=== PATIENT | female | born 1960 | race Hispanic/Latino ===

== ENCOUNTER 2017-10-15 09:22 | Outpatient (CLI) | payer OTHER | END 2017-10-15 09:23 | disposition home or self-care (01) | LOC: BICMRI 09:22 | PROVIDERS: ATTEND Family Medicine | DX: M54.40 Lumbago with sciatica, unspecified side (principal) | CPT/HCPCS: 72148 ==

== ENCOUNTER 2017-11-10 13:30 | Inpatient (IN) | payer OTHER ==
[2017-11-17] MEDS ORDERED: CEFAZOLIN/Water 2 GM/20 ML SYRINGE ONE (05:53)
[2017-11-17] MEDS ORDERED: Ketorolac Tromethamine 30 MG/ML VIAL ONE ×2 (05:53→09:54)
[2017-11-17] MEDS ORDERED: Vancomycin HCl 1.5 GM in Sodium Chloride 0.9% 250 ML 300 ML IVPB SCH ×2 (06:00→18:45)
[2017-11-17] MEDS ORDERED: Fentanyl 100 MCG/2 ML VIAL ONE (06:35)
[2017-11-17] MEDS ORDERED: Midazolam HCl 2 mg/2 ml Vial ONE (06:35)
[2017-11-17] MEDS ORDERED: Ketorolac Tromethamine 30 MG/ML VIAL IVP PRN (07:15)
[2017-11-17] MEDS ORDERED: fentaNYL Citrate/PF 1,250 MCG, Bupivacaine 25 ML in Sodium Chloride 0.9% 250 ML 200 ML EPIDURAL SCH (07:15)
[2017-11-17] MEDS ORDERED: diphenhydrAMINE 25 MG CAP PO PRN ×2 (07:15→10:15)
[2017-11-17] MEDS ORDERED: Promethazine HCl 25 MG/ML VIAL IM PRN ×3 (07:15→10:15)
[2017-11-17] MEDS ORDERED: diphenhydrAMINE 50 MG/ML VIAL IM PRN (07:15)
[2017-11-17] MEDS ORDERED: traMADol HCl 50 MG TAB PO PRN ×3 (07:15→10:15)
[2017-11-17] MEDS ORDERED: Ondansetron HCl/PF 4 MG/2 ML Vial IVP PRN ×3 (07:15→10:15)
[2017-11-17] MEDS ORDERED: Bupivacaine 0.25% 10 ML VIAL EPIDURAL PRN (07:15)
[2017-11-17] MEDS ORDERED: HYDROcodone/Acetaminophen 5/325 mg Tablet PO PRN ×2 (07:15)
[2017-11-17] MEDS ORDERED: Promethazine HCl 25 MG SUPP PR PRN (07:15)
[2017-11-17] MEDS ORDERED: Zolpidem Tartrate 5 MG TAB PO PRN ×2 (07:15→10:15)
[2017-11-17] MEDS ORDERED: Naloxone HCl 0.4 mg/ml Vial IV PRN (07:15)
[2017-11-17] MEDS ORDERED: Naloxone HCl 0.4 mg/ml Vial IVP PRN (07:15)
[2017-11-17] MEDS ORDERED: Hydrocerin (Eucerin) Cream 120 gm Jar TOP PRN (07:15)
[2017-11-17] MEDS ORDERED: diphenhydrAMINE 50 MG/ML VIAL IVP PRN (07:15)
[2017-11-17] MEDS ORDERED: Bupivacaine HCl 0.5%/Epinephrine 1:200,000/PF 30 ml Vial ONE (07:17)
[2017-11-17] MEDS ORDERED: Bupivacaine/Epinephrine 0.25% 30 ML VIAL ONE (07:17)
[2017-11-17] MEDS ORDERED: Promethazine HCl 25 MG/ML VIAL SLOW IVP PRN (08:31)
[2017-11-17] MEDS ORDERED: Tranexamic Acid 1,000 MG in Sodium Chloride 0.9% 250 ML 250 ML IVPB SCH (09:45)
[2017-11-17] MEDS ORDERED: Senokot S 8.6-50 MG TAB PO SCH ×2 (10:15→11:30)
[2017-11-17] MEDS ORDERED: Ferrous Gluconate 324 MG TAB PO SCH ×2 (10:15→11:30)
[2017-11-17] MEDS ORDERED: Aspirin 325 MG TAB PO SCH ×2 (10:15→21:00)
[2017-11-17] MEDS ORDERED: HYDROcodone/Acetaminophen 10/325 mg Tablet PO PRN ×2 (10:15)
[2017-11-17] MEDS ORDERED: Multivitamin W/ Minerals 1 TAB PO SCH ×2 (10:15→11:30)
[2017-11-17] MEDS ORDERED: Fentanyl 100 MCG/2 ML VIAL SLOW IVP PRN ×2 (10:15)
[2017-11-17] MEDS ORDERED: Loperamide HCl 2 MG CAP PO PRN (11:03)
[2017-11-17] MEDS ORDERED: Labetalol HCl 100 MG/20 ML VIAL SLOW IVP PRN (11:03)
[2017-11-17] MEDS ORDERED: Senokot 8.6 MG TAB PO PRN (11:03)
[2017-11-17] MEDS ORDERED: hydrALAZINE 20 MG/ML VIAL SLOW IVP PRN (11:03)
[2017-11-17] MEDS ORDERED: Milk Of Magnesia 30 ML UDCUP PO PRN (11:03)
[2017-11-17] MEDS ORDERED: Mag-Al 1200 mg/1200 mg/30 ML UDCUP PO PRN (11:03)
[2017-11-17] MEDS ORDERED: Eucerin (Mineral Oil/Petrolatum,White) 30 gm Jar TOP PRN (11:03)
[2017-11-17] MEDS ORDERED: Chloraseptic Spray 180 ml Bottle PO PRN (11:03)
[2017-11-17] MEDS ORDERED: Diabetic Tussin 200 MG/10 ML UDCUP PO PRN (11:03)
[2017-11-17] MEDS ORDERED: Artificial Tears 18 DROP/0.9 ML EA EYE PRN (11:03)
--- NOTE | 2017-11-17 11:07 | RAD ---
AP VIEW PELVIS TWO VIEWS RIGHT HIP: DATE: 11/17/17. HISTORY: Post right total hip arthroplasty. FINDINGS: There are postsurgical changes related to placement of right total hip prosthesis. No hardware compl ication is seen. No fracture or dislocation is identified. No other osseous abnormality. Phlebolit hs overlie the pelvis. Subcutaneous emphysema is seen at the right lateral hip related to recent pos tsurgical change. IMPRESSION: Right total hip prosthesis. No other acute osseous abnormality is seen. POS: BONIFACIO
--- NOTE | 2017-11-17 11:39 | CON ---
DATE OF CONSULTATION: 11/17/2017 PRIMARY CARE PHYSICIAN: Dr. Wagner. PRIMARY ATTENDING: Dr. Jean Marie Flynn. REASON FOR ADMISSION: Elective admission for right hip replacement. HISTORY OF PRESENT ILLNESS: A 57-year-old female who has underlying history of hypertension as well as osteoarthritis. She is having right hip pain for about a year. Her pain is getting worse with physical activity. Her pain gets better with rest. She tried all NSAIDs and different type of pain medication as well as exercise without any significant improvement. Her right hip was more worse and that was affecting her quality of life and that is why finally patient agreed to go for right hip replacement. Dr. Aj admitted her for right hip replacement. She does not have any chest pain, palpitation, shortness of breath. She denies any constipation or diarrhea. She denies any UTI symptoms. She denies any nausea, vomiting, diarrhea. Patient is Cymro speaking only, so history obtained with help of her daughter who is present at bedside. PAST MEDICAL HISTORY: Hypertension. PAST SURGICAL HISTORY: Cholecystectomy and status post right hip replacement. PAST PSYCHIATRIC HISTORY: Reviewed and negative. ALLERGIES: No known drug allergy. FAMILY HISTORY: No strong family history of premature coronary artery disease, stroke or cancer. CURRENT HOME MEDICATIONS: Celecoxib 200 mg p.o. daily, Toradol with tramadol 10 /25 one tablet q.6 hourly p.r.n., losartan 50 mg p.o. daily, Lyrica 75 mg p.o. at bedtime, vitamin B complex 1 tablet p.o. daily. REVIEW OF SYSTEMS: The following complete review of systems was negative, unless otherwise mentioned in the HPI or below: Constitutional: Weight loss or gain, ability to conduct usual activities. Skin: Rash, itching. Eyes: Double vision, pain. ENT/Mouth: Nose bleeding, neck stiffness, pain, tenderness. Cardiovascular: Palpitations, dyspnea on exertion, orthopnea. Respiratory: Shortness of breath, wheezing, cough, hemoptysis, fever or night sweats. Gastrointestinal: Poor appetite, abdominal pain, heartburn, nausea, vomiting, constipation, or diarrhea. Genitourinary: Urgency, frequency, dysuria, nocturia. Musculoskeletal: Pain, swelling. Neurologic/Psychiatric: Anxiety, depression. Allergy/Immunologic: Skin rash, bleeding tendency. Please see my HPI for pertinent positive and negative. All other review of systems reviewed and negative except as mentioned in the HPI. SOCIAL HISTORY: Patient is and lives at home with family. No history of tobacco, alcohol or illicit drug abuse. HOSPITAL COURSE: Reviewed. PHYSICAL EXAMINATION: VITAL SIGNS: Currently, blood pressure 120/70, pulse 72, respiratory rate 18, weight 210 pounds, saturation 99% on room air. GENERAL: The patient is currently alert, awake, in no obvious acute distress. HEAD: Normocephalic, atraumatic. EYES: Pupils round, reactive to light. Extraocular muscle intact. ENT: Oropharynx within normal limits. Moist mucous membranes. No oral lesion , no pharyngeal erythema, no exudate. NECK: Supple, no JVD, no thyromegaly, no carotid bruit, no jugular venous distention. LUNGS: Clear to auscultation without any rhonchi or rales. CARDIAC: S1 and S2 regular. No murmur, no gallop, no rub. ABDOMEN: Soft, bowel sounds present, nontender, nondistended. No organomegaly , no mass. Obesity present. No suprapubic tenderness. BACK: Examination unremarkable. EXTREMITIES: Upper extremity passive movement of all joints are normal. Lower extremity, right hip site surgical dressing noted. Epidural in place. SCD in place. No edema. Good peripheral pulsation, no calf tenderness. Good distal pulsation. SKIN: No skin rash. HEMATOLOGICAL SYSTEM: No lymphadenopathy. NEUROLOGIC: Nonfocal examination. Patient is moving all 4 limbs. Sensation intact. Reflexes symmetrical. Plantar bilateral flexor. PSYCHIATRIC: Normal affect. SIGNIFICANT LABORATORY DATA AND IMAGING DATA: CBC: WBC 7.4, hemoglobin 12.3, platelet 207. INR 1.0. BMP: Sodium 142, potassium 3.9, chloride 107, carbon dioxide 26, anion gap 13, BUN 13, creatinine 0.65, glucose 136. Hemoglobin A1c 6.2, calcium 9.5. LFT: AST 15, ALT 17, alkaline phosphatase 61, albumin 4.0, LDL 155. Urinalysis; leukocyte esterase trace. Hip x-ray noted. ASSESSMENT AND PLAN: 1. Status post right hip replacement. The patient has advanced osteoarthritis and failed conservative therapy required right hip replacement. Currently, patient had surgery done without any complications. She has epidural in placed and pain is controlled. The patient will get aspirin 81 mg p.o. b.i.d. for deep venous thrombosis prophylaxis. As per protocol postoperatively, we will continue ferrous gluconate 324 mg p.o. b.i.d. The patient will be given stool softener to prevent constipation. The patient will be given pain medication as needed basis for pain control. She will have physical therapy and occupational therapy as per [facility] protocol treatment. 2. Hypertension. We will continue losartan 50 mg p.o. daily. If blood pressure is less than 100, then will hold on antihypertensive medication. 3. History of dyslipidemia. Based on lipid profile in 2015, patient has elevated LDL. The patient is instructed to follow up with primary care physician and repeat outpatient fasting lipid profile and considering statin therapy will be required based on lipid profile testing. We will defer testing to be done after discharge. 4. Prediabetes, based on 2015, patient has hemoglobin A1c of 6.2. The patient will need another testing after discharge. Necessary patient education given about diet and exercise. 5. Obesity with body mass index of 37. Weight loss education given. Healthy lifestyle measures discussed with the patient. 6. Deep venous thrombosis prophylaxis. Patient is already on aspirin therapy for deep venous thrombosis prophylaxis as per protocol. 7. Gastrointestinal prophylaxis, Pepcid 20 mg p.o. b.i.d. 8. Code status: The patient is FULL CODE. Patient's is surrogate decision maker. Disposition plan based on clinical course. Patient will stay in hospital more than 2 midnights. Thank you for the consult. We will follow up with you while in hospital. Plan of care discussed with the patient's family member at bedside. VIKI
--- NOTE | 2017-11-17 12:44 | OP ---
DATE OF PROCEDURE: 11/17/2017 PREOPERATIVE DIAGNOSIS: Right hip osteoarthritis. POSTOPERATIVE DIAGNOSIS: Right hip osteoarthritis. PROCEDURE PERFORMED: Right total hip arthroplasty. STAFF: Gee Aj M.D. CHEMICAL PLANT OPERATOR SUPERVISOR: Wilfrid Espinoza PA-C ANESTHESIA: Tomasa. The patient received a general intubation with an epidural. ESTIMATED BLOOD LOSS: 150 mL. TOURNIQUET TIME: None. IMPLANTS: A Trident 15 mm cluster shell Trident 10 degree poly insert, 36 mm Accolade 130 degree size 2 neck stem, 36 Biolox Delta minus 2-1/2 femoral head ceramic femoral head. ANTIBIOTICS: Given with Ancef 2 grams, vancomycin 1.5 grams. COMPLICATIONS: None. HISTORY OF PRESENT ILLNESS: Real Carias is a 57-year-old female who presented to me with right hip pain as well as some radiating pain. Pain is increased with ROM leading to groin and deeper hip pain. She has pain when she rides very long in seated position, 8 out of 10. Denies numbness or tingling. The patient does have radiating pain at posterior calf. Exam of the right hip showed groin pain with internal rotation of her hip as well as neurovascularly intact. She was straight leg raise equivocal. MRI of her hip show degenerative changes as well as x-rays showed osteophyte formation, migration of the head and joint space loss without acute fracture. MRI of lumbar spine also showed degenerative changes at L3-L4 as well as L4-L5. I discussed with the patient that a portion of his pain was coming from a right hip arthritis and a portion was coming from her back. I discussed the risks and benefits of surgery to include pain, scar, bleeding, infection, damage to vital structures, decreased range of motion or strength, failure of procedure, continued pain despite surgical intervention, loss of life or limb. The patient understands the risks and benefits and elected to proceed. PROCEDURE IN DETAIL: Time out was performed designating the patient's right lower extremity as the operative site based on sight, consents and markings. After timeout, the patient's right lower extremity was prepped and draped in sterile fashion. The patient was placed in lateral decubitus position with all bony prominences well padded, hip position, lateral incision down through skin, down the large amount of subcutaneous fat to the IT band. IT band was split. Gluteus medius and minimus were taken off. The capsule was evaluated, excised down to the acetabulum. We dislocated the hip, cut the femoral neck, removed the head was about 46 mm diameter. We then excised all the labrum. We then placed our acetabular retractors in place. We reamed sequentially up from 44 up to 50. We placed a final 50 mm cup into position. We had good firm fixation , 5 to 6 mm uncovered superior as well as posterior. I liked position of the cup. We then washed, placed our 10 degree poly insert in position, held in place, had firm stable fixation with our cup. We then moved back to the patient 's femoral neck. We broached. We used a viavoo cutter opening canal reamer. We then placed a broach and broached to a size 2. We reduced it to size 2 standard, felt the patient might be a little long, put a final trial and therefore elected for a size 2 with -2.5 ceramic head. We reduced and had good stability. Lengths seemed equal on the table. We reduced into place, washed, and closed the gluteus minimus, gluteus medius with #2 Vicryl, #2 Quill, 0 Quill , 2-0 Quill, and glue. The patient will be admitted back to [facility]. We will follow in house. VIKI
[2017-11-17] MEDS: Dextrose 5 %-0.45 % NaCl 1,000 ML IV SCH ×2 (13:13→13:57)
[2017-11-17] MEDS ORDERED: Glycopyrrolate 0.2 MG/ML 5 ML SYRINGE ONE (13:47)
[2017-11-17] MEDS ORDERED: PROPOFOL 200 MG/20 ML VIAL ONE (13:47)
[2017-11-17] MEDS ORDERED: PHENYLEPHRINE-NS 100 MCG/ML 10 ML SYRINGE ONE (13:47)
[2017-11-17] MEDS ORDERED: Lidocaine 1% PF 5 ML VIAL ONE (13:47)
[2017-11-17] MEDS ORDERED: ePHEDrine/0.9% NaCl/PF SYRINGE 50 mg/10 ml ONE (13:47)
[2017-11-17] MEDS: CEFAZOLIN/Water 2 GM/20 ML SYRINGE SLOW IVP SCH ×2 (15:41→23:04)
[2017-11-17] MEDS: Ferrous Gluconate 324 MG TAB PO SCH (20:51)
[2017-11-17] MEDS: Famotidine 20 MG TAB PO SCH (20:51)
[2017-11-17] MEDS: Pregabalin 75 MG CAP PO SCH (20:52)
[2017-11-17] MEDS: Senokot S 8.6-50 MG TAB PO SCH (20:52)
[2017-11-18] MEDS: Acetaminophen 325 MG TAB PO PRN ×2 (03:14→20:08)
[2017-11-18 05:53] LABS: Hemoglobin 10.1 g/dL (12.0-16.0); Mean Corpuscular HGB CONC 33.8 g/dL (32.0-36.0); Mean Corpuscular Hemoglobin 28.9 pg (27.0-31.0); Mean Corpuscular Volume 85.5 fl (81.0-99.0); Mean Platelet Volume 8.7 fL (7.4-10.4); Platelet Count 152 thou/uL (130-400); RBC Distribution Width 12.1 % (11.5-14.5); Red Blood Cell (RBC) Count 3.48 mill/uL (4.20-5.40); White Blood Cell (WBC) Count 7.7 thou/uL (4.8-10.8)
[2017-11-18] MEDS: Dextrose 5 %-0.45 % NaCl 1,000 ML IV SCH ×3 (06:52→23:26)
[2017-11-18] MEDS: Senokot S 8.6-50 MG TAB PO SCH ×2 (08:07→20:09)
[2017-11-18] MEDS: Ferrous Gluconate 324 MG TAB PO SCH ×2 (08:09→20:10)
[2017-11-18] MEDS: Famotidine 20 MG TAB PO SCH ×2 (08:10→20:08)
[2017-11-18] MEDS: CeleCOXIB 100 MG CAP PO SCH (08:10)
[2017-11-18] MEDS: Multivitamin W/ Minerals 1 TAB PO SCH (08:10)
[2017-11-18] MEDS: Stress 600 With Zinc 1 TAB PO SCH (08:11)
[2017-11-18] MEDS ORDERED: Non-Formulary Item 1 EACH (Celecoxib [Celecoxib] 200 MG) PO SCH (09:00)
[2017-11-18] MEDS ORDERED: Non-Formulary Item 1 EACH (Losartan Potassium [Losartan Potassium] 50 MG) PO SCH (09:00)
[2017-11-18] MEDS ORDERED: VITAMIN B COMPLEX PO SCH (09:00)
--- NOTE | 2017-11-18 10:17 | PDOC.PN ---
- Subjective Encounter Start Date: 11/18/17 Encounter Start Time: 08:30 Patient seen and examined for medical management. No new complaints. No overnight events overall doing well, her pain is controlled - Objective Resuscitation Status: Resuscitation Status FULL:Full Resuscitation MAR Reviewed: Yes Vital Signs & Weight: Vital Signs (12 hours) Temp Pulse Resp BP BP Pulse Ox 11/18/17 08:26 99.1 F 93 16 118/68 95 11/18/17 04:38 100.1 F H 95 17 110/66 98 11/17/17 23:04 99.5 F 87 16 113/68 99 Weight Weight 210 lb I&O: 11/17/17 11/18/17 11/19/17 06:59 06:59 06:59 Intake Total 3625 Output Total 2100 Balance 1525 Result Diagrams: 11/18/17 05:33 Phys Exam - Physical Examination Constitutional: NAD HEENT: PERRLA, moist MMs, sclera anicteric Neck: no nodes, no JVD, supple, full ROM Respiratory: no wheezing, no rales, no rhonchi, clear to auscultation bilateral Cardiovascular: RRR, no significant murmur, no rub Gastrointestinal: soft, non-tender, no distention, positive bowel sounds obesity+ Musculoskeletal: no edema, pulses present epidrual in place, surgical site with dressing Neurological: non-focal, normal sensation, moves all 4 limbs Lymphatic: no nodes Psychiatric: normal affect, A&O x 3 Skin: no rash, normal turgor Dx/Plan (1) Status post total hip replacement, right Code(s): Z96.641 - PRESENCE OF RIGHT ARTIFICIAL HIP JOINT Status: Acute (2) Anemia, normocytic normochromic Code(s): D64.9 - ANEMIA, UNSPECIFIED Status: Chronic (3) Dyslipidemia Code(s): E78.5 - HYPERLIPIDEMIA, UNSPECIFIED Status: Chronic (4) Hypertension Code(s): I10 - ESSENTIAL (PRIMARY) HYPERTENSION Status: Chronic (5) Obesity (BMI 30-39.9) Code(s): E66.9 - OBESITY, UNSPECIFIED Status: Chronic (6) Osteoarthritis Code(s): M19.90 - UNSPECIFIED OSTEOARTHRITIS, UNSPECIFIED SITE Status: Chronic - Plan cont current plan of care, plan discussed w/ family, PT/OT, DVT proph w/SCDs * pt is on aspirin for DVT prophylaxis as per [facility] protocol * continue PT/OT as per [facility] protocol * pain control with pain meds as below * epidural as per anesthesia * medication reviewed as below * symptomatic treatment * continue pepcid for GI prophylaxis. * hold blood pressure meds for SBP <120 today * will monitor for fever today, likely reactive fever after surgery Review of Systems - Review of Systems Constitutional: fever. negative: chills, sweats, weakness, malaise, other Eyes: negative: Pain, Vision Change, Conjunctivae Inflammation, Eyelid Inflammation, Redness, Other ENT: negative: Ear Pain, Ear Discharge, Nose Pain, Nose Discharge, Nose Congestion, Mouth Pain, Mouth Swelling, Throat Pain, Throat Swelling, Other Respiratory: negative: Cough, Dry, Shortness of Breath, Hemoptysis, SOB with Excertion, Pleuritic Pain, Sputum, Wheezing Cardiovascular: negative: chest pain, palpitations, orthopnea, paroxysmal nocturnal dyspnea, edema, light headedness, other Gastrointestinal: negative: Nausea, Vomiting, Abdominal Pain, Diarrhea, Constipation, Melena, Hematochezia, Other Genitourinary: negative: Dysuria, Frequency, Incontinence, Hematuria, Retention , Other Musculoskeletal: negative: Neck Pain, Shoulder Pain, Arm Pain, Back Pain, Hand Pain, Leg Pain, Foot Pain, Other Skin: negative: Rash, Lesions, Alec, Bruising, Other Neurological: negative: Weakness, Numbness, Incoordination, Change in Speech, Confusion, Seizures, Other - Medications/Allergies Allergies/Adverse Reactions: Allergies Allergy/AdvReac Type Severity Reaction Status Date / Time No Known Allergies Allergy Unverified 11/10/17 14:27 Medications: Current Medications Acetaminophen (Tylenol) 650 mg PO Q4H PRN PRN Reason: CALLEJAS/ T > 101F; Mild Pain (1-3) Last Admin: 11/18/17 03:14 Dose: 650 mg Hydrocodone Bitart/Acetaminophen (Garvin 5/325) 1 tab PO Q4H PRN PRN Reason: Mild Pain 0-3 Hydrocodone Bitart/Acetaminophen (Garvin 5/325) 2 tab PO Q4H PRN PRN Reason: For Moderate Pain 4-6 Hydrocodone Bitart/Acetaminophen (Garvin 10/325) 1 tab PO Q4H PRN PRN Reason: Moderate Pain (4-6) Hydrocodone Bitart/Acetaminophen (Garvin 10/325) 2 tab PO Q4H PRN PRN Reason: Severe Pain (7-10) Al Hydroxide/Mg Hydroxide (Maalox) 15 ml PO Q4H PRN PRN Reason: Heartburn or Indigestion Artificial Tears (Tears Naturale) 0 drop EA EYE PRN PRN PRN Reason: Dry Eyes Aspirin (Aspirin Chewable) 81 mg PO BID [facility] Last Admin: 11/18/17 08:10 Dose: 81 mg Celecoxib (Celebrex) 200 mg PO DAILY [facility] Last Admin: 11/18/17 08:10 Dose: 200 mg Diphenhydramine HCl (Benadryl) 25 mg IM Q3H PRN PRN Reason: Itching Diphenhydramine HCl (Benadryl) 25 mg IVP Q3H PRN PRN Reason: Itching Diphenhydramine HCl (Benadryl) 25 mg PO Q6H PRN PRN Reason: Itching Emollient Cream (Hydrocerin Cream) 0 gm TOP PRN PRN PRN Reason: Itching Famotidine (Pepcid) 20 mg PO BID [facility] Last Admin: 11/18/17 08:10 Dose: 20 mg Fentanyl (Sublimaze) 50 mcg SLOW IVP Q30MIN PRN PRN Reason: Moderate Pain (4-6) Fentanyl (Sublimaze) 100 mcg SLOW IVP Q1H PRN PRN Reason: Severe Pain (7-10) Ferrous Gluconate (Fergon) 324 mg PO BID [facility] Last Admin: 11/18/17 08:09 Dose: 324 mg Guaifenesin (Robitussin Sf) 200 mg PO Q4H PRN PRN Reason: Cough Hydralazine HCl (Apresoline) 10 mg SLOW IVP Q4H PRN PRN Reason: Systolic BP > 180 Fentanyl Citrate 1,250 mcg/Bupivacaine HCl 25 ml/ Sodium Chloride 250 mls @ 0 mls/hr EPIDURAL INF [facility] PRN Reason: As Directed Dextrose/Sodium Chloride (D5 1/2 Ns) 1,000 mls @ 100 mls/hr IV .Q10H [facility] Last Admin: 11/18/17 06:52 Dose: Not Given Iron/Minerals/Multivitamins (Theragran M) 1 tab PO DAILY [facility] Last Admin: 11/18/17 08:10 Dose: 1 tab Ketorolac Tromethamine (Toradol) 30 mg IVP Q6H PRN PRN Reason: Moderate Pain (4-6) Stop: 11/20/17 07:16 Labetalol HCl (Normodyne) 20 mg SLOW IVP Q4H PRN PRN Reason: Systolic BP > 180 Loperamide HCl (Imodium) 2 mg PO PRN PRN PRN Reason: Diarrhea/Loose Stools Losartan Potassium (Cozaar) 50 mg PO DAILY [facility] Magnesium Hydroxide (Milk Of Magnesium) 30 ml PO DAILYPRN PRN PRN Reason: Constipation Mineral Oil/White Petrolatum (Eucerin Cream) 0 gm TOP BIDPRN PRN PRN Reason: Dry Skin Miscellaneous Information (Communication Order-Pharmacy) 1 each FS ASDIR [facility] Multivitamins/Zinc (Stress 600 With Zinc) 1 tab PO DAILY [facility] Last Admin: 11/18/17 08:11 Dose: 1 tab Naloxone HCl (Narcan) 0.2 mg IV Q5MIN PRN PRN Reason: RR <=8 OR OBTUNDED/UNAROUSABLE Naloxone HCl (Narcan) 0.1 mg IVP Q15MIN PRN PRN Reason: URINARY RETENTION Ondansetron HCl (Zofran) 4 mg IVP Q6H PRN PRN Reason: Nausea/Vomiting Phenol (Chloraseptic [place] 180 Ml Bot) 0 ml PO PRN PRN PRN Reason: Sore Throat Pregabalin (Lyrica) 75 mg PO HS [facility] Last Admin: 11/17/17 20:52 Dose: Not Given Promethazine HCl (Phenergan Suppository) 25 mg UT Q4H PRN PRN Reason: Nausea/Vomiting Promethazine HCl (Phenergan) 12.5 mg IM Q4H PRN PRN Reason: Nausea/Vomiting Last Admin: 11/17/17 21:02 Dose: 12.5 mg Senna (Senokot) 2 tab PO HSPRN PRN PRN Reason: Constipation Senna/Docusate Sodium (Senokot S) 2 tab PO BID [facility] Last Admin: 11/18/17 08:07 Dose: 2 tab Sodium Chloride (Flush - Normal Saline) 10 ml IVF PRN PRN PRN Reason: Saline Flush Tramadol HCl (Ultram) 50 mg PO Q6H PRN PRN Reason: Mild Pain 1-3 Tramadol HCl (Ultram) 100 mg PO Q6H PRN PRN Reason: Mild Pain (1-3) Zolpidem Tartrate (Ambien) 5 mg PO HSPRN PRN PRN Reason: Insomnia
[2017-11-18] MEDS: Losartan 25 MG TAB PO SCH (12:11)
[2017-11-18 12:54] VITALS: BMI 37.2
[2017-11-18] MEDS: Pregabalin 75 MG CAP PO SCH (20:08)
[2017-11-19 05:40] LABS: Hemoglobin 10.6 g/dL (12.0-16.0); Mean Corpuscular HGB CONC 33.4 g/dL (32.0-36.0); Mean Corpuscular Hemoglobin 28.9 pg (27.0-31.0); Mean Corpuscular Volume 86.7 fl (81.0-99.0); Mean Platelet Volume 9.1 fL (7.4-10.4); Platelet Count 152 thou/uL (130-400); RBC Distribution Width 12.1 % (11.5-14.5); Red Blood Cell (RBC) Count 3.68 mill/uL (4.20-5.40); White Blood Cell (WBC) Count 9.8 thou/uL (4.8-10.8)
[2017-11-19 08:33] VITALS: TEMP 99
[2017-11-19] MEDS: Famotidine 20 MG TAB PO SCH (09:11)
[2017-11-19] MEDS: Losartan 25 MG TAB PO SCH (09:11)
[2017-11-19] MEDS: Multivitamin W/ Minerals 1 TAB PO SCH (09:12)
[2017-11-19] MEDS: Ferrous Gluconate 324 MG TAB PO SCH (09:12)
[2017-11-19] MEDS: CeleCOXIB 100 MG CAP PO SCH (09:12)
[2017-11-19] MEDS: Senokot S 8.6-50 MG TAB PO SCH (09:12)
[2017-11-19] MEDS: Stress 600 With Zinc 1 TAB PO SCH (09:13)
--- NOTE | 2017-11-19 09:27 | DIS ---
DATE OF ADMISSION: 11/17/2017 DATE OF DISCHARGE: 11/19/2017 PRIMARY CARE PHYSICIAN: Dr. Wagner. DISCHARGE DISPOSITION: Home with outpatient physical therapy. PRIMARY DISCHARGE DIAGNOSIS: Status post right total hip replacement. SECONDARY DISCHARGE DIAGNOSES: Osteoarthritis, obesity with BMI of 30, hypertension, dyslipidemia, a nemia, normocytic, normochromic. PRIMARY PROCEDURE/OPERATION: Right total hip replacement by Dr. Aj. RADIOLOGICAL INVESTIGATION: Hip x-ray. SIGNIFICANT LABORATORY DATA: WBC 9.8, hemoglobin 10.6, platelet 152. DISCHARGE MEDICATIONS: Aspirin 81 mg p.o. b.i.d., [place] 10 one or two tablets q.4 hourly p.r.n., fritz ecoxib 200 mg p.o. daily, Toradol with tramadol 10/25 p.r.n., losartan 50 mg p.o. daily, Lyrica 75 mg p.o. at bedtime, vitamin B complex 1 tablet p.o. daily. CONTRAINDICATIONS: None. CODE STATUS: FULL CODE. INPATIENT FEED MILL MANAGER: Dr. Aj was primary [facility] team was consulted for medical comanagement. TEST RESULTS PENDING ON DISCHARGE: None. ALLERGIES: No known drug allergy. DISCHARGE PLAN: Post hospital, patient will follow up with Dr. Aj on 11/30/2017. The patient w ill make appointment with primary care physician in 1 week. HOSPITAL COURSE: A 57-year-old female with the above-mentioned medical problem who was electively ad mitted by Dr. Jean Marie Flynn for right total hip replacement which was done on 11/17/2017 without any complication. Postoperatively, a [facility] Team was consulted for medical comanagement . Patient medical problem remained stable. We continued all her home medication while in hospital. She was given aspirin for DVT prophylaxis. She had Pepcid for gastrointestinal prophylaxis and she had epidural while in hospital. Her pain was controlled with pain medication. Patient did very well with PT, OT as per [facility] protocol. The patient is currently planned for discharge today by primary team. The patient is seen and examined at bedside today. Yesterday, patient had fever, but she does not zamarripa ve any UTI symptoms. She does not have any leukocytosis, so we are suspecting this is reactionary fe blanca while in hospital and patient did not require any antibiotic therapy. The patient is instructed to follow with primary care physician if persistent fever. All review of system reviewed with her and negative. Currently, the patient is seen and examined at bedside today. PHYSICAL EXAMINATION: VITAL SIGNS: Currently, temperature 99.0, pulse 81, respiratory rate 16, saturation 95% on room air, blood pressure 116/74, and weight 210 pounds. GENERAL: The patient is currently alert, awake, no acute distress. HEAD: Normocephalic, atraumatic. EYES: Pupils round and reactive to light. Extraocular muscle intact. ENT: Oropharynx within normal limits. Moist mucous membranes. NECK: Supple, no JVD, no thyromegaly, no carotid bruit. LUNGS: Clear to auscultation without any rhonchi or rales. CARDIAC: S1, S2 regular without any murmur. ABDOMEN: Soft and benign. EXTREMITIES: No edema. NEUROLOGIC: Nonfocal examination. Overall, patient is medically stable for discharge today and we will sign off.
--- NOTE | 2017-11-19 09:59 | PDOC.PN ---
- Subjective Encounter Start Date: 11/19/17 Encounter Start Time: 09:40 Patient seen and examined for medical management. No new complaints. No overnight events - Objective Resuscitation Status: Resuscitation Status FULL:Full Resuscitation MAR Reviewed: Yes Vital Signs & Weight: Vital Signs (12 hours) Temp Pulse Resp BP Pulse Ox 11/19/17 07:25 99 F 81 16 116/74 95 11/19/17 04:35 99.2 F 77 20 98/64 99 11/19/17 00:00 99.5 F 89 16 113/69 96 Weight Admit Weight 210 lb Weight 210 lb I&O: 11/18/17 11/19/17 11/20/17 06:59 06:59 06:59 Intake Total 3625 985 390 Output Total 2100 1100 700 Balance 1525 -115 -310 Result Diagrams: 11/19/17 05:03 Phys Exam - Physical Examination Constitutional: NAD HEENT: PERRLA, moist MMs, sclera anicteric Neck: no JVD, supple Respiratory: no wheezing, no rales, no rhonchi Cardiovascular: RRR, no significant murmur, no rub Gastrointestinal: soft, non-tender, no distention, positive bowel sounds Musculoskeletal: no edema, pulses present Neurological: non-focal, normal sensation, moves all 4 limbs Lymphatic: no nodes Psychiatric: normal affect, A&O x 3 Skin: no rash, normal turgor Dx/Plan (1) Status post total hip replacement, right Code(s): Z96.641 - PRESENCE OF RIGHT ARTIFICIAL HIP JOINT Status: Acute (2) Anemia, normocytic normochromic Code(s): D64.9 - ANEMIA, UNSPECIFIED Status: Chronic (3) Dyslipidemia Code(s): E78.5 - HYPERLIPIDEMIA, UNSPECIFIED Status: Chronic (4) Hypertension Code(s): I10 - ESSENTIAL (PRIMARY) HYPERTENSION Status: Chronic (5) Obesity (BMI 30-39.9) Code(s): E66.9 - OBESITY, UNSPECIFIED Status: Chronic (6) Osteoarthritis Code(s): M19.90 - UNSPECIFIED OSTEOARTHRITIS, UNSPECIFIED SITE Status: Chronic - Plan cont current plan of care, plan discussed w/ family, PT/OT, social insurance specialist * pt is currently on aspirin for DVT prophylaxis as per [facility] protocol * continue PT/OT as per [facility] protocol for now * outpt PT after discharge * pain controlled with pain meds as below * epidural will be removed today as per nesthesia * medication reviewed as below * symptomatic treatment * continue pepcid for GI prophylaxis. * pt is planned for discharge today * resume home medication on discharge * stable for discharge medically * pain meds on discharge as per primary team * see my discharge summery. Review of Systems - Review of Systems Eyes: negative: Pain, Vision Change, Conjunctivae Inflammation, Eyelid Inflammation, Redness, Other ENT: negative: Ear Pain, Ear Discharge, Nose Pain, Nose Discharge, Nose Congestion, Mouth Pain, Mouth Swelling, Throat Pain, Throat Swelling, Other Respiratory: negative: Cough, Dry, Shortness of Breath, Hemoptysis, SOB with Excertion, Pleuritic Pain, Sputum, Wheezing Cardiovascular: negative: chest pain, palpitations, orthopnea, paroxysmal nocturnal dyspnea, edema, light headedness, other Gastrointestinal: negative: Nausea, Vomiting, Abdominal Pain, Diarrhea, Constipation, Melena, Hematochezia, Other Genitourinary: negative: Dysuria, Frequency, Incontinence, Hematuria, Retention , Other Musculoskeletal: negative: Neck Pain, Shoulder Pain, Arm Pain, Back Pain, Hand Pain, Leg Pain, Foot Pain, Other Skin: negative: Rash, Lesions, Alec, Bruising, Other - Medications/Allergies Allergies/Adverse Reactions: Allergies Allergy/AdvReac Type Severity Reaction Status Date / Time No Known Allergies Allergy Unverified 11/10/17 14:27 Medications: Current Medications Acetaminophen (Tylenol) 650 mg PO Q4H PRN PRN Reason: CALLEJAS/ T > 101F; Mild Pain (1-3) Last Admin: 11/18/17 20:08 Dose: 650 mg Hydrocodone Bitart/Acetaminophen ([place] 5/325) 1 tab PO Q4H PRN PRN Reason: Mild Pain 0-3 Hydrocodone Bitart/Acetaminophen ([place] 5/325) 2 tab PO Q4H PRN PRN Reason: For Moderate Pain 4-6 Hydrocodone Bitart/Acetaminophen ([place] 10/325) 1 tab PO Q4H PRN PRN Reason: Moderate Pain (4-6) Hydrocodone Bitart/Acetaminophen ([place] 10/325) 2 tab PO Q4H PRN PRN Reason: Severe Pain (7-10) Al Hydroxide/Mg Hydroxide (Maalox) 15 ml PO Q4H PRN PRN Reason: Heartburn or Indigestion Artificial Tears (Tears Naturale) 0 drop EA EYE PRN PRN PRN Reason: Dry Eyes Aspirin (Aspirin Chewable) 81 mg PO BID [facility] Last Admin: 11/19/17 09:12 Dose: 81 mg Celecoxib (Celebrex) 200 mg PO DAILY [facility] Last Admin: 11/19/17 09:12 Dose: 200 mg Diphenhydramine HCl (Benadryl) 25 mg IM Q3H PRN PRN Reason: Itching Diphenhydramine HCl (Benadryl) 25 mg IVP Q3H PRN PRN Reason: Itching Diphenhydramine HCl (Benadryl) 25 mg PO Q6H PRN PRN Reason: Itching Emollient Cream (Hydrocerin Cream) 0 gm TOP PRN PRN PRN Reason: Itching Famotidine (Pepcid) 20 mg PO BID [facility] Last Admin: 11/19/17 09:11 Dose: 20 mg Fentanyl (Sublimaze) 50 mcg SLOW IVP Q30MIN PRN PRN Reason: Moderate Pain (4-6) Fentanyl (Sublimaze) 100 mcg SLOW IVP Q1H PRN PRN Reason: Severe Pain (7-10) Ferrous Gluconate (Fergon) 324 mg PO BID [facility] Last Admin: 11/19/17 09:12 Dose: 324 mg Guaifenesin (Robitussin Sf) 200 mg PO Q4H PRN PRN Reason: Cough Hydralazine HCl (Apresoline) 10 mg SLOW IVP Q4H PRN PRN Reason: Systolic BP > 180 Fentanyl Citrate 1,250 mcg/Bupivacaine HCl 25 ml/ Sodium Chloride 250 mls @ 0 mls/hr EPIDURAL INF [facility] PRN Reason: As Directed Last Admin: 11/19/17 04:32 Dose: 250 mls Dextrose/Sodium Chloride (D5 1/2 Ns) 1,000 mls @ 100 mls/hr IV .Q10H [facility] Last Admin: 11/18/17 23:26 Dose: Not Given Iron/Minerals/Multivitamins (Theragran M) 1 tab PO DAILY [facility] Last Admin: 11/19/17 09:12 Dose: 1 tab Ketorolac Tromethamine (Toradol) 30 mg IVP Q6H PRN PRN Reason: Moderate Pain (4-6) Stop: 11/20/17 07:16 Labetalol HCl (Normodyne) 20 mg SLOW IVP Q4H PRN PRN Reason: Systolic BP > 180 Loperamide HCl (Imodium) 2 mg PO PRN PRN PRN Reason: Diarrhea/Loose Stools Losartan Potassium (Cozaar) 50 mg PO DAILY [facility] Last Admin: 11/19/17 09:11 Dose: 50 mg Magnesium Hydroxide (Milk Of Magnesium) 30 ml PO DAILYPRN PRN PRN Reason: Constipation Mineral Oil/White Petrolatum (Eucerin Cream) 0 gm TOP BIDPRN PRN PRN Reason: Dry Skin Miscellaneous Information (Communication Order-Pharmacy) 1 each FS ASDIR [facility] Multivitamins/Zinc (Stress 600 With Zinc) 1 tab PO DAILY [facility] Last Admin: 11/19/17 09:13 Dose: 1 tab Naloxone HCl (Narcan) 0.2 mg IV Q5MIN PRN PRN Reason: RR <=8 OR OBTUNDED/UNAROUSABLE Naloxone HCl (Narcan) 0.1 mg IVP Q15MIN PRN PRN Reason: URINARY RETENTION Ondansetron HCl (Zofran) 4 mg IVP Q6H PRN PRN Reason: Nausea/Vomiting Phenol (Chloraseptic [place] 180 Ml Bot) 0 ml PO PRN PRN PRN Reason: Sore Throat Pregabalin (Lyrica) 75 mg PO [facility] Last Admin: 11/18/17 20:08 Dose: 75 mg Promethazine HCl (Phenergan Suppository) 25 mg [place] Q4H PRN PRN Reason: Nausea/Vomiting Promethazine HCl (Phenergan) 12.5 mg IM Q4H PRN PRN Reason: Nausea/Vomiting Last Admin: 11/17/17 21:02 Dose: 12.5 mg Senna (Senokot) 2 tab PO HSPRN PRN PRN Reason: Constipation Senna/Docusate Sodium (Senokot S) 2 tab PO BID [facility] Last Admin: 11/19/17 09:12 Dose: 2 tab Sodium Chloride (Flush - Normal Saline) 10 ml IVF PRN PRN PRN Reason: Saline Flush Tramadol HCl (Ultram) 50 mg PO Q6H PRN PRN Reason: Mild Pain 1-3 Tramadol HCl (Ultram) 100 mg PO Q6H PRN PRN Reason: Mild Pain (1-3) Zolpidem Tartrate (Ambien) 5 mg PO HSPRN PRN PRN Reason: Insomnia
[2017-11-19 12:15] VITALS: BP 95/62
[2017-11-19] MEDS: Dextrose 5 %-0.45 % NaCl 1,000 ML IV SCH (15:28)
== END 2017-11-19 15:35 | disposition home or self-care (01) | DRG 470 ==
LOC: SJJU 11-17 05:38
PROVIDERS: ADMIT Orthopaedic Surgery; ATTEND Orthopaedic Surgery
PROC: 0SR904Z Replacement of Right Hip Joint with Ceramic on Polyethylene Synthetic Substitute, Open Approach (ICD-10-PCS; principal; 2017-11-17)
DX: M16.11 Unilateral primary osteoarthritis, right hip (principal); E66.9 Obesity, unspecified; E78.5 Hyperlipidemia, unspecified; M19.90 Unspecified osteoarthritis, unspecified site; D64.9 Anemia, unspecified; Z68.30 Body mass index [BMI] 30.0-30.9, adult
CPT/HCPCS: 36415; 85027; G8978-GP-CL; G8979-GP-CJ; G8987-GO-CK; G8988-GO-CJ; J0670; J1885; J2001; J2250; J2550; J2704; J3010; J3370; J3490; J7050

== ENCOUNTER → 2017-11-10 | Outpatient (CLI) | payer OTHER ==
[2017-11-10 14:55] LABS: Bilirubin Negative (Negative); Blood, Urine Negative (Negative); Clarity CLEAR (Clear); Glucose, Urine (Dipstick) Negative (Negative); Leukocyte Trace (Negative); Nitrite Negative (Negative); Protein, Urine (Dipstick) Negative (Neg-Trace); Specific Gravity, Urine 1.012 (1.002-1.036); Urobilinogen 0.2 mg/dL (0.2-1.0)
[2017-11-10 14:57] LABS: Bacteria/HPF None Seen HPF (None Seen); Hemoglobin 12.3 g/dL (12.0-16.0); Hyaline Casts/LPF 0-3 HYALINE CAST LPF (0-3 Hyaline); Mean Corpuscular HGB CONC 34.3 g/dL (32.0-36.0); Mean Corpuscular Hemoglobin 29.1 pg (27.0-31.0); Mean Corpuscular Volume 84.7 fl (81.0-99.0); Mean Platelet Volume 8.8 fL (7.4-10.4); Platelet Count 207 thou/uL (130-400); RBC Distribution Width 11.9 % (11.5-14.5); RBC/HPF 0-3 HPF (0-3); Red Blood Cell (RBC) Count 4.22 mill/uL (4.20-5.40); Squamous Epithelial 0-3 HPF (0-3); WBC/HPF 0-3 HPF (0-3); White Blood Cell (WBC) Count 7.4 thou/uL (4.8-10.8)
[2017-11-10 15:03] LABS: Prothrombin Time 13.5 SEC (12.0-14.7)
[2017-11-10 15:13] LABS: Anion Gap 13 mmol/L (10-20); BUN (Urea Nitrogen) 13 mg/dL (9.8-20.1); Calc. Creatinine Clearance 0 mL/min (70-130); Calcium 9.5 mg/dL (7.8-10.44); Carbon Dioxide 26 mmol/L (22-29); Chloride 107 mmol/L (98-107); Estimated GFR-MDRD Greater than 90; Glucose 136 mg/dL (70-105); Potassium 3.9 mmol/L (3.5-5.1); Sodium 142 mmol/L (136-145)
--- NOTE | 2017-11-10 16:46 | EKG ---
Test Reason : Blood Pressure : / mmHG Vent. Rate : 074 BPM Atrial Rate : 074 BPM P-R Int : 190 ms QRS Dur : 086 ms QT Int : 392 ms P-R-T Axes : 064 059 066 degrees QTc Int : 435 ms Normal sinus rhythm Normal ECG No previous ECGs available Confirmed by DR. Radhames YADAV ([id number]) on 11/10/2017 4:46:18 PM Referred By: TC Confirmed By:DR. Radhames YADAV
== END ==
LOC: LABBT 09:00
PROVIDERS: ATTEND Orthopaedic Surgery
DX: Z01.818 Encounter for other preprocedural examination (principal); M17.11 Unilateral primary osteoarthritis, right knee
CPT/HCPCS: 80048; 81001; 85027; 85610; 86850; 86900; 86901; 87081; 93005; 93010